=== PATIENT | female | born 1985 | race Caucasian/White ===

== ENCOUNTER 2016-02-21 09:54 | Emergency (ER) | payer OTHER ==
[~2016-02-21] VITALS: Ht 154.9 cm; Wt 56.0 kg
[~2016-02-21 09:54] MED LIST: D-ME118S6 PO; IBUP400T22 PO
[2016-02-21 10:04] VITALS: Ht 154.9 cm; Wt 56.0 kg
--- NOTE | 2016-02-21 11:01 | ERD ---
ER Documentation Chief Complaint Date/Time DATE: 02/21/16 TIME: 10:57 Chief Complaint flu x 3 weeks HPI This is a 31-year-old female that presents to the ER with cough for the last 3 weeks. Patient states that she has been experiencing sharp chest pain with inspiration and bouts of a dry cough. Patient denies any shortness of breath. She does have a past medical history of asthma and allergic rhinitis. Patient is also complaining of sinus pressure behind her ears and behind her eyes. Patient denies any fevers or chills. She denies any recent travel. She denies any leg pain or leg swelling. ROS 12 point review of systems was done, all negative except per HPI. Medications Home Meds Active Scripts Prednisone* (Prednisone*) 20 Mg Tab, 40 MG PO DAILY for 4 Days, TAB Prov:COURTNEY DURANT 02/21/16 Ibuprofen* (Motrin*) 400 Mg Tab, 400 MG PO Q6, #15 TAB Prov:PLACIDO RAMEY MD 08/13/15 Dextromethorphan Hb-Promethazine Hcl (Promethazine DM Syrup) 180 Ml Syrup, 5 ML PO Q6H Y for COUGH, #4 OZ Prov:COURTNEY DURANT 05/06/15 Allergies Allergies: Coded Allergies: amoxicillin (Verified Allergy, Mild, 02/21/16) PMhx/Soc Medical and Surgical Hx: pt denies Medical Hx, pt denies Surgical Hx Hx Alcohol Use: No Hx Substance Use: No Hx Tobacco Use: No Physical Exam Vitals Vital Signs Date Time Temp Pulse Resp B/P Pulse Ox O2 Delivery O2 Flow Rate FiO2 02/21/16 10:04 98.1 67 20 101/55 99 Physical Exam GENERAL: The patient is well-developed, well-nourished, in no acute distress. NECK: Cervical spine is non tender with no step off. Supple, no nuchal rigidity HEENT: Atraumatic. Pupils equal, round and reactive to light. Extraocular muscles are grossly intact. Conjunctivae pink, no discharge. Bilateral tympanic membranes are clear with no evidence of erythema, effusion or dulling of the light reflex. Tonsilar erythema with no exudates or uvular deviation. Clear rhinorrhea. RESPIRATORY: Clear to auscultation bilaterally. There are no rales, wheezes or rhonchi. HEART: Regular rate and rhythm. No murmurs, clicks, rubs or gallops. EXTREMITIES: No clubbing or cyanosis. Full range of motion. Grossly neurovascularly intact. NEUROLOGIC: Alert and oriented. Cranial nerves II through XII are intact. SKIN: There is no rash. The skin is warm and dry. Results 24 hrs EKG was done and read by Dr. Oconnor [address] elevation or T-wave inversion. Procedures/MDM Differential diagnosis includes but is not limited to; Viral URI, allergic rhinitis, bronchitis, pertussis,pneumonia. Cough likely viral in etiology. Clinical suspicion for pneumonia is low as patient appears well, is not hypoxic or in any respiratory distress. Additionally, patients physical examination is benign. In regards to patients sharp chest pain, it may be chest wall pain vs pleuritis secondary to continued cough. I doubt cardiac etiology or intrathoracic abnormality. Patient has denied SOB I doubt pulmonary embolism as patient does not have any PERC criteria. Patient will be sent roselia with a short course of oral steroid. Plan was discussed with patient they understand and agree. Patient needs to follow up with PCP in 1-2 days or return to ER sooner if symptoms worsen. Departure Diagnosis: Primary Impression: Upper respiratory infection Condition: Stable COURTNEY DURANT Feb 21, 2016 11:01
--- NOTE | 2016-02-21 11:35 | RADRPT ---
PROCEDURE: XR Chest. CLINICAL INDICATION: Cough. TECHNIQUE: Single frontal view. COMPARISON: 05/06/2015. FINDINGS: The lungs are clear. The heart size is normal. There is no pleural effusion. There is no pneumothorax. IMPRESSION: 1. Normal chest radiograph. 2. No change from 05/06/2015. RPTAT: QQ .Uday Beckman MD, MD Date Time Electronically viewed and signed by .Uday Beckman MD, MD on 02/21/2016 11:34 .R/
[2016-02-21] MEDS ORDERED: PRED20TA PO (11:43)
== END 2016-02-21 12:22 | disposition home or self-care (01) ==
LOC: FTE 09:54
DX: J06.9 Acute upper respiratory infection, unspecified (principal)
CPT/HCPCS: 71010; 93005; Z7502

== ENCOUNTER 2016-05-17 08:53 | Emergency (ER) | payer OTHER ==
[~2016-05-17] VITALS: Ht 157.5 cm; Wt 48.0 kg
[~2016-05-17 08:53] MED LIST changes: +PRED20TA PO
[2016-05-17 09:19] VITALS: Ht 157.5 cm; Wt 48.0 kg
[2016-05-17] MEDS ORDERED: ALBUTEROL 0.083% (NEB) 2.5 MG/3 ML AMP HHN STA ×2 (10:07→11:11)
--- NOTE | 2016-05-17 10:13 | ERD ---
ER Documentation Chief Complaint Date/Time DATE: 05/17/16 TIME: 10:08 Chief Complaint FLU-LIKE SX, SOB, HX PNA, HX FREQUENT RESPIRATORY INFECTIONS. HPI 31-year-old female presents to the emergency room for symptoms including shortness of breath, wheezing. Stated this has been going on and off for about 5 days. Denies headache, loss of consciousness, dizziness, blurry vision, changes in vision, photophobia, facial pain, ear pain, throat pain, difficulty swallowing, neck pain, shoulder pain, chest pain, cough, hemoptysis, abdominal pain, back pain, loss of appetite, nausea, vomiting, hematochezia, diarrhea, constipation, urinary symptoms, , the possibility of being , bladder and bowel incontinences, extremity weakness, extremity tenderness, numbness or tingling sensation, difficulty walking, recent travel, recent exposure to illness, recent antibiotic use in the last 3 months, fever, chills. Allergy: Amoxicillin. PMH: Asthma. Family medical history: (12) AO LMP: "3 months ago. I have always been irregular. Not ." Medications: Symbicort. Surgery: Denies. Primary Social History: Not working at this time. Smokes medical marijuana. Occasional drinks alcoholic beverages. Denies smoking tobacco, use of illegal drugs. ROS All systems reviewed and are negative except as per history of present illness. Medications Home Meds Active Scripts Acetaminophen* (Tylophen*) 500 Mg Capsule, 2 CAP PO Q8H Y for PAIN AND OR ELEVATED TEMP, #20 CAP Prov:RADHA VARGAS 05/17/16 Albuterol Sulfate* (Proair HFA*) 8.5 Gm Hfa.aer.ad, 2 PUFF INH Q4, #1 INHALER Prov:RADHA VARGAS 05/17/16 Azithromycin* (Zithromax*) 250 Mg Tablet, 250 MG PO .ZPACK DIRECTED, #6 TAB TAKE 500 MG (2 TABS) THE FIRST DAY THEN 250 MG (1 TAB) DAYS 2-5 Prov:RADHA VARGAS F 05/17/16 Prednisone* (Prednisone*) 20 Mg Tab, 40 MG PO DAILY for 4 Days, TAB Prov:COURTNEY DURANT 02/21/16 Ibuprofen* (Motrin*) 400 Mg Tab, 400 MG PO Q6, #15 TAB Prov:PLACIDO RAMEY MD 08/13/15 Dextromethorphan Hb-Promethazine Hcl (Promethazine DM Syrup) 180 Ml Syrup, 5 ML PO Q6H Y for COUGH, #4 OZ Prov:COURTNEY DUARNT 05/06/15 Allergies Allergies: Coded Allergies: amoxicillin (Verified Allergy, Mild, 02/21/16) PMhx/Soc Hx Respiratory Disorders: Yes (asthma) Hx Alcohol Use: No Hx Substance Use: No Hx Tobacco Use: No Physical Exam Vitals Vital Signs Date Time Temp Pulse Resp B/P Pulse Ox O2 Delivery O2 Flow Rate FiO2 05/17/16 10:47 94 24 98 21 05/17/16 09:19 99.6 110 24 134/82 98 Physical Exam CONSTITUTIONAL: Well-appearing; well-nourished; in no apparent distress. HEAD: Normocephalic; atraumatic. EYES: Conjunctiva clear, sclera non-icteric, EOM intact. PERRLA. Ears: Hearing intact. EACs clear, TMs non-bulging, non-inflamed, translucent & mobile, ossicles normal appearance, No obstructions, no erythema, no discharges Nose: No obstructions. No polyps. No external lesions. Mucosa non-inflamed. No external lesions, septum and turbinates normal. No rhinorrhea. No discharges. Frontal sinus is non-tender to palpation. Maxillary sinus is non-tender to palpation. MOUTH: Moist mucous membranes, no lesion, no obstructions, no vesicles, no thrush, patent airway Throat: Uvula in midline. Right tonsil is +1 with no erythema, no exudate. Left tonsil is +1 with no erythema, no exudate. Tolerating secretions well. Good gag reflex. Patent airway. Neck: Supple, without lesions, bruits, or adenopathy. No mass. Thyroid non- enlarged and non-tender to palpation. CHEST: Symmetrical chest. Respirations even and not labored. No retractions noted. CARDIOVASCULAR: Normal S1, S2. RRR. No murmurs, gallops. RESPIRATORY: Normal chest excursion with respiration; No rhonchi, or rales. Breathing even and unlabored. Tight wheezing left greater than the right. Speaking in clear, full, and complete sentences w/ ease. ABDOMEN: Normal bowel sounds normal. Soft, round, non-distended, non-guarding, no tenderness, no rebound, no organomegaly, no masses, no pulsating abdominal mass. No hernia. No peritoneal signs. : No CVA tenderness. BACK: Symmetrical shoulder. Spine is midline without deformity, tenderness. No evidence of trauma or deformity. PELVIS: Stable pelvis. No evidence of trauma or deformity. MUSCULOSKELETAL: Normal gait and station. No misalignment, asymmetry, crepitation, defects, tenderness, masses, effusions, decreased range of motion, instability, atrophy or abnormal strength or tone in the head, neck, spine, ribs , pelvis or extremities. No calf tenderness. NEUROVASCULAR: Distal pulses are present. Pedal pulse are present, equal, and normal. Capillary refills are < 2 seconds. NEUROLOGIC: Alert and oriented x4. Speaks full and clear sentences. Cranial Nerves II-XII normal. Sensation to pain, touch, and proprioception normal. Grossly unremarkable. No neurologic deficits. Romberg test is negative. PSYCHOLOGICAL: The patients mood and manner are appropriate. No hallucinations , delusions. Not SI. Not HI. Has the capacity to decide for self SKIN: Normal for age and ethnicity; warm; dry; good turgor; no apparent lesions or exudates. No rashes, hives, discoloration. Intact. Results 24 hrs Current Medications Medications (Trade) Dose Ordered Sig/Sara Route PRN Reason Start Time Stop Time Status Last Admin Dose Admin Albuterol (Proventil 0.083% (Neb)) 5 mg ONCE STAT [facility] 05/17/16 10:07 05/17/16 10:08 DC 05/17/16 10:46 Ipratropium [place] (Atrovent 0.02% (Neb)) 0.5 mg ONCE ONCE N 05/17/16 10:30 05/17/16 10:31 DC 05/17/16 10:45 Dexamethasone (Decadron) 10 mg ONCE ONCE IM 05/17/16 10:30 05/17/16 10:31 DC 05/17/16 10:15 Acetaminophen (Tylenol Tab) 650 mg ONCE ONCE PO 05/17/16 11:00 05/17/16 11:01 DC 05/17/16 11:00 Procedures/MDM Examination: Please see physical examination. Disease process, medical treatment was explained to the patient and family member. They verbalized understanding and agreed with the diagnostic tests, medical treatment, and follow-up care. Radiology: Chest x-ray Impression: Stable and unremarkable chest. Treatment: Decadron IM. Albuterol. Atrovent. Re-evaluation: Patient denies headache, blurry vision, dizziness, neck pain, shoulder pain, chest pain, back pain, abdominal pain. Tolerating secretions. No difficulty swallowing. Patient did well. Speaks full and clear sentences. Respirations even and unlabored. Lung sounds are clear to auscultation. Consultation: Differential diagnosis: Pneumonia versus status asthmaticus versus asthma exacerbation versus bronchitis versus asthmatic bronchitis versus asthma attack Medical decision makin-year-old female presents to the emergency room for symptoms including shortness of breath, wheezing. Stated this has been going on and off for about 5 days. Patient's complaint, patient's history about her complaint, diagnostic test results, my physical findings, my reevaluation are consistent with my final diagnosis of asthma exacerbation, asthmatic bronchitis. Medications prescribed are the following: Pro-air. Azithromycin. Patient and family member are made aware of the side effects and adverse reactions of the medications prescribed. Instructed on when to seek emergent and medical attention in case allergic/anaphylactic reactions or severe side effects and or adverse reactions to medications. Patient and family member verbalized understanding. Patient instructed Instructed to follow-up with his PCP in 24-48 hours. Community resources was also provided. Patient stated that she will make sure to see a primary care provider in the next 24 hours. Instructed to Call 911 for chest pain, shortness of breath. Advised to come back here in ED as soon as possible for severity of symptoms which includes but not limited to: any new symptoms; shortness of breath/difficulty of breathing; cardiovascular changes; severe gastrointestinal symptoms; signs and symptoms of bleeding and or infection; signs of compartment syndrome/neurovascular changes; neurological changes/deficits. Patient and family member verbalized understanding. Upon discharge, patient is alert and oriented x 4, speaks full and clear sentences, denies pain, has no neurological deficits, has no neurovascular deficits, difficulty of breathing. Breathing even and unlabored. Lung sounds are clear to auscultation. Not in distress. Appears comfortable. Ambulatory with steady gait. Appears satisfied with care provided here in ED. Departure Diagnosis: Primary Impression: Asthma exacerbation Additional Impression: Asthmatic bronchitis Condition: Stable Additional Instructions: Patient instructed Instructed to follow-up with his PCP in 24-48 hours. Community resources was also provided. Patient stated that she will make sure to see a primary care provider in the next 24 hours. Instructed to Call 911 for chest pain, shortness of breath. Advised to come back here in ED as soon as possible for severity of symptoms which includes but not limited to: any new symptoms; shortness of breath/difficulty of breathing; cardiovascular changes; severe gastrointestinal symptoms; signs and symptoms of bleeding and or infection; signs of compartment syndrome/neurovascular changes; neurological changes/deficits. Patient and family member verbalized understanding. RADHA VARGAS May 17, 2016 10:13
[2016-05-17] MEDS ORDERED: IPRATROPIUM (NEB) 0.5 MG/2.5 ML AMP HHN ONE (10:30)
[2016-05-17] MEDS ORDERED: DEXAMETHASONE 10 MG/ML 1 ML INJ IM ONE (10:30)
--- NOTE | 2016-05-17 10:46 | RADRPT ---
PROCEDURE: XR Chest PA and Lateral CLINICAL INDICATION: Cough TECHNIQUE: PA and Lateral views of the chest were obtained. COMPARISON: 02/21/2016 FINDINGS: Cardiovascular: The cardiovascular silhouette appears unremarkable. Lung Uribe: The lung uribe appear clear with no nodule, alveolar infiltrate, or interstitial promi nence evident. Pleural Spaces: No pneumothorax is identified and no effusion is evident. Osseous Structures: The osseous structures appear intact. Soft Tissues: The soft tissues appear unremarkable. IMPRESSION: Stable and unremarkable chest. Physician Petty Date Time Electronically viewed and signed by Gigi Galarza Physician on 05/17/2016 10:46 RH/
[2016-05-17] MEDS ORDERED: ACETAMINOPHEN 325 MG TAB PO ONE (11:00)
[2016-05-17] MEDS ORDERED: AZIT250T94 PO (11:05)
[2016-05-17] MEDS ORDERED: ACET500C5 PO (11:06)
[2016-05-17] MEDS ORDERED: ALBU8.5H3 INH (11:06)
[2016-05-17] MEDS ORDERED: PRED20TA PO (11:11)
[2016-05-17 11:54] VITALS: BP 122/52; PULSE 123; RESP 16
== END 2016-05-17 11:56 | disposition home or self-care (01) ==
LOC: FTE 08:53
DX: J45.901 Unspecified asthma with (acute) exacerbation (principal)
CPT/HCPCS: 71020; 94640; 94664; 96372; J1100; Z7502; Z7610

== ENCOUNTER 2016-08-14 19:52 | Emergency (ER) | payer OTHER ==
[~2016-08-14] VITALS: Ht 157.5 cm; Wt 48.2 kg
[~2016-08-14 19:52] MED LIST changes: +ACET500C5 PO; +ALBU8.5H3 INH; +AZIT250T94 PO
[2016-08-14 19:54] VITALS: Ht 157.5 cm; Wt 48.2 kg
[2016-08-14] MEDS ORDERED: HYDROCODONE/APAP (5/325) TAB PO ONE (21:00)
--- NOTE | 2016-08-14 22:32 | RADRPT ---
PROCEDURE: XR Tibia and Fibula. CLINICAL INDICATION: foot/ leg pain s/p trauma TECHNIQUE: AP, lateral and oblique views of the right tibia and fibula were obtained. COMPARISON: No prior studies are available for comparison. FINDINGS: There is normal mineralization and alignment. No fracture or osseous lesion is identified. The joint s are unremarkable. There are normal soft tissues without evidence of soft tissue swelling. IMPRESSION: Normal right tibia and fibula. No visualized fracture or dislocation. RPTAT: HBST .Rodri Tyler MD, MD Date Time Electronically viewed and signed by .Rodri Tyler MD, MD on 08/14/2016 22:31 .T/
--- NOTE | 2016-08-14 22:33 | RADRPT ---
PROCEDURE: XR Ankle. CLINICAL INDICATION: foot/ leg pain s/p trauma TECHNIQUE: AP and lateral views of the right ankle were performed. COMPARISON: None. FINDINGS: There is normal mineralization and alignment. No fracture or osseous lesion is identified. The joint s are normal. The soft tissues are unremarkable. IMPRESSION: No acute fracture or dislocation. Unremarkable examination. RPTAT: HBST .Rodri Tyler MD, MD Date Time Electronically viewed and signed by .Rodri Tyler MD, on 08/14/2016 22:33 .T/
--- NOTE | 2016-08-14 22:37 | RADRPT ---
PROCEDURE: XR Foot. CLINICAL INDICATION: foot/ leg pain s/p trauma TECHNIQUE: AP, lateral and oblique views of the right foot was obtained. The images were reviewed on a PACS workstation. COMPARISON: None. FINDINGS: There is deformity of the right second metatarsal head with a likely mildly displaced fracture. The re is distraction of the right second metatarsal phalangeal joint, 5 mm. Bone mineralization is norm al. No significant soft tissue swelling is seen. IMPRESSION: 1. Deformity of the right second metatarsal head, likely reflecting a mildly displaced or impacted fracture. Dislocation of the second metatarsal phalangeal joint with distraction. RPTAT: HBST .Rodri Tyler MD, MD Date Time Electronically viewed and signed by .Rodri Tyler MD, on 08/14/2016 22:36 .T/
[2016-08-14] MEDS ORDERED: IBUP-1542 PO (23:04)
[2016-08-14] MEDS ORDERED: HYDR-906 PO (23:04)
[2016-08-14 23:51] VITALS: BP 101/67; PULSE 79; RESP 18; TEMP 97.8
--- NOTE | 2016-08-16 11:18 | ERD ---
ER Documentation Chief Complaint Date/Time DATE: 08/16/16 TIME: 11:01 Chief Complaint RIGHT FOOT DULL SHOTING PAIN/SWELLING S/P TRIPPING OVER 25LB WT HPI Patient is a 31 year old female who present to the ED with right foot and ankle pain s/p tripping over a 25 lb weight. Patient states pain is in foot and radiate up into leg. Unable to bear weight to the affected extremity. Patient denies fevers or chills. Patient did not fall or hit her head. Patient denies headache, nausea, vomiting, back pain or LOC. No previous injuries to the affected extremity. ROS All systems reviewed and are negative except as per history of present illness. Medications Home Meds Active Scripts Hydrocodone/Acetaminophen (Screven 5-325 Tablet) 1 Each Tablet, 1 TAB PO Q6H Y for PAIN, #7 TAB Prov:ARLENE BUENROSTRO PA-C 08/14/16 Ibuprofen* (Motrin*) 600 Mg Tab, 600 MG PO Q6, #20 TAB Prov:ARLENE BUENROSTRO PA-C 08/14/16 Prednisone* (Prednisone*) 20 Mg Tab, 40 MG PO DAILY for 4 Days, TAB Prov:RADHA VARGAS 05/17/16 Acetaminophen* (Tylophen*) 500 Mg Capsule, 2 CAP PO Q8H Y for PAIN AND OR ELEVATED TEMP, #20 CAP Prov:RADHA VARGAS 05/17/16 Albuterol Sulfate* (Proair HFA*) 8.5 Gm Hfa.aer.ad, 2 PUFF INH Q4, #1 INHALER Prov:RADHA VARGAS 05/17/16 Azithromycin* (Zithromax*) 250 Mg Tablet, 250 MG PO .ZPACK DIRECTED, #6 TAB TAKE 500 MG (2 TABS) THE FIRST DAY THEN 250 MG (1 TAB) DAYS 2-5 Prov:RADHA VARGAS 05/17/16 Prednisone* (Prednisone*) 20 Mg Tab, 40 MG PO DAILY for 4 Days, TAB Prov:COURTNEY DURANT 02/21/16 Ibuprofen* (Motrin*) 400 Mg Tab, 400 MG PO Q6, #15 TAB Prov:PLACIDO RAMEY MD 08/13/15 Dextromethorphan Hb-Promethazine Hcl (Promethazine DM Syrup) 180 Ml Syrup, 5 ML PO Q6H Y for COUGH, #4 OZ Prov:COURTENY DURANT 05/06/15 Allergies Allergies: Coded Allergies: amoxicillin (Verified Allergy, Mild, 02/21/16) PMhx/Soc History of Surgery: No Anesthesia Reaction: No Hx Neurological Disorder: No Hx Respiratory Disorders: No (asthma) Hx Cardiac Disorders: No Hx Psychiatric Problems: No Hx Miscellaneous Medical Probl: No Hx Alcohol Use: No Hx Substance Use: Yes (CANNABIS) Hx Tobacco Use: No Smoking Status: Never smoker Physical Exam Vitals Vital Signs Date Time Temp Pulse Resp B/P Pulse Ox O2 Delivery O2 Flow Rate FiO2 08/14/16 23:51 97.8 79 18 101/67 95 Room Air 08/14/16 19:54 98.0 118 20 130/82 96 Physical Exam GENERAL: Well-developed, well-nourished female. Appears in no acute distress. HEAD: Normocephalic, atraumatic. EYES: Pupils are equally reactive bilaterally. EOMs grossly intact. No conjunctival erythema. NECK: Supple. No lymphadenopathy or thyromegaly. No meningismus. LUNG: Clear to auscultation bilaterally. No rhonchi, wheezing, rales or coarse breath sounds. HEART: Regular rate and rhythm. No murmurs, rubs or gallops. BACK: No midline tenderness. Extremities: Equal pulses bilaterally. No peripheral clubbing, cyanosis or edema. No unilateral leg swelling. NEUROLOGIC: Alert and oriented. Moving all four extremities. 5/5 strength in all extremities. Normal speech. Steady gait. SKIN: Normal color. Warm and dry. No rashes or lesions. RLE: No obvious deformity, erythema, ecchymosis. Swelling noted to mid foot and ankle. Skin intact. Full ROM of knee. Decreased ROM of ankle and toes secondary to swelling and pain. Tender to palpation of midfoot, below toes 2-3, lateral ankle. Non tender to palpation of proximal tib-fib, knee. Sensation intact to light touch. Neurovascularly intact. (Able to plantarflex, dorsiflex, taylor foot , invert foot, raise big toe.) 2+ DP and DT pulses. Compartments soft. Results 24 hrs Current Medications Medications (Trade) Dose Ordered Sig/Sara Route PRN Reason Start Time Stop Time Status Last Admin Dose Admin Acetaminophen/ Hydrocodone Bitart (Screven (5/325)) 1 tab ONCE ONCE PO 08/14/16 21:00 08/14/16 21:01 DC 08/14/16 20:46 Procedures/MDM ED COURSE: The patient was stable throughout ED course. I kept the patient and/or family informed of laboratory and diagnostic imaging results throughout the ED course. DIAGNOSTIC IMAGING: Read by radiologist. Patient: ANISA MAGANA : 1985 Age: 31 Sex: F MR #: [id number] DOS: 08/14/162029 Ordering MD: ARLENE BUENROSTRO PA-C Location: [facility] Room/Bed: PROCEDURE: XR Ankle. CLINICAL INDICATION: foot/ leg pain s/p trauma TECHNIQUE: AP and lateral views of the right ankle were performed. COMPARISON: None. FINDINGS: There is normal mineralization and alignment. No fracture or osseous lesion is identified. The joints are normal. The soft tissues are unremarkable. IMPRESSION: No acute fracture or dislocation. Unremarkable examination. RPTAT: HBST .Rodri Tyler MD, MD Date Time Electronically viewed and signed by .Rodri Tyler MD, on 08/14/2016 22:33 .T/ CC: ARLENE BUENROSTRO PA-C Patient: ANISA MAGANA : 1985 Age: 31 Sex: F MR #: [id number] DOS: 08/14/162029 Ordering MD: ARLENE BUENROSTRO PA-C Location: [facility] Room/Bed: PROCEDURE: XR Foot. CLINICAL INDICATION: foot/ leg pain s/p trauma TECHNIQUE: AP, lateral and oblique views of the right foot was obtained. The images were reviewed on a PACS workstation. COMPARISON: None. FINDINGS: There is deformity of the right second metatarsal head with a likely mildly displaced fracture. There is distraction of the right second metatarsal phalangeal joint, 5 mm. Bone mineralization is normal. No significant soft tissue swelling is seen. IMPRESSION: 1. Deformity of the right second metatarsal head, likely reflecting a mildly displaced or impacted fracture. Dislocation of the second metatarsal phalangeal joint with distraction. RPTAT: HBST .Rodri Tyler MD, MD Date Time Electronically viewed and signed by .Rodri Tyler MD, MD on 08/14/2016 22:36 .T/ CC: ARLENE BUENROSTRO PA-C DIAGNOSTIC IMAGING REPORT Patient: ANISA MAGANA : 1985 Age: 31 Sex: F MR #: [id number] DOS: 08/14/16 2030 Ordering MD: ARLENE BUENROSTRO PA-C Location: [facility] Room/Bed: PROCEDURE: XR Tibia and Fibula. CLINICAL INDICATION: foot/ leg pain s/p trauma TECHNIQUE: AP, lateral and oblique views of the right tibia and fibula were obtained. COMPARISON: No prior studies are available for comparison. FINDINGS: There is normal mineralization and alignment. No fracture or osseous lesion is identified. The joints are unremarkable. There are normal soft tissues without evidence of soft tissue swelling. IMPRESSION: Normal right tibia and fibula. No visualized fracture or dislocation. RPTAT: HBST .Rodri Tyler MD, MD Date Time Electronically viewed and signed by .Rodri Tyler MD, MD on 08/14/2016 22:31 .T/ CC: ARLENE BUENROSTRO PA-C PROCEDURES: SPLINT APPLICATION: The patient was verbally consented at bedside prior to splint application. Patient was explained the risks, benefits and alternatives to this procedure. The patient was neurovascularly intact prior to and status post application of the splint. The patient tolerated the procedure well with no complications. Splint type: short leg splint Extremity: right lower extremity Indication: Deformity of the right second metatarsal head, likely reflecting a mildly displaced or impacted fracture. Dislocation of the second metatarsal phalangeal joint with distraction. MEDICATIONS GIVEN: Screven Patient tolerated medication well with no adverse reactions. Patient reported improvement in pain. MEDICAL DECISION MAKING: This is a 31 year old female who presents with R foot and ankle pain s/p tripping over a 25 lbs weight. Vital signs were reviewed. Patient was afebrile. Xrays showed Deformity of the right second metatarsal head, likely reflecting a mildly displaced or impacted fracture. Dislocation of the second metatarsal phalangeal joint with distraction. Xray tib fibula was negative. Xray ankle was negative. Patient was placed in posterior short leg splint by customer support technician. Patient was instructed on crutches use. Given these findings, the patients presentation is most consistent with possible 2nd metatarsal head fracture. I have a much lower clinical concern for ankle dislocation, tibia fracture, fibula fracture, ankle fracture, tarsal bone fracture, lisfranc injury, gout, septic joint, reactive arthritis, psoriatic arthritis, DVT, compartment syndrome, plantar fasciitis, diabetic neuropathy or pes planus. At this time, unable to rule out any tendon and ligament injuries including Lisfranc injury. Patient will need to follow up with pharmacy operations specialist for further management. PRESCRIPTIONS: Ibuprofen DISCHARGE: At this time, patient is stable for discharge and outpatient management. Patient given a copy of all imaging studies. Patient advised to remain nonweight bearing to the affected extremity until seen by pharmacy operations specialist. Referral information provided. I have instructed the patient to follow-up with his/her primary care physician in 1-2 days. I have discussed with the patient the possibility of needing to see an pharmacy operations specialist for further workup and imaging if the pain persists. I have instructed the patient to promptly return to the ER for any new or worsening symptoms including increased pain, swelling, redness, warmth or fever. The patient and/or family expressed understanding of and agreement with this plan. All questions were answered. Home care instructions were provided. Departure Diagnosis: Primary Impression: Metatarsal fracture Encounter type: initial encounter Metatarsal bone: second Fracture type: closed Fracture alignment: displaced Laterality: unspecified laterality Qualified Code: S92.323A - Closed displaced fracture of second metatarsal bone , unspecified laterality, initial encounter Additional Impression: Ankle pain Laterality: unspecified laterality Chronicity: acute Qualified Code: M25.579 - Acute ankle pain, unspecified laterality Condition: Stable Patient Instructions: Fracture, Foot Referrals: [facility] YOU HAVE RECEIVED A MEDICAL SCREENING EXAM AND THE RESULTS INDICATE THAT YOU DO NOT HAVE A CONDITION THAT REQUIRES URGENT TREATMENT IN THE EMERGENCY DEPARTMENT. FURTHER EVALUATION AND TREATMENT OF YOUR CONDITION CAN WAIT UNTIL YOU ARE SEEN IN YOUR DOCTORS OFFICE WITHIN THE NEXT 1-2 DAYS. IT IS YOUR RESPONSIBILITY TO MAKE AN APPOINTMENT FOR FOLOW-UP CARE. IF YOU HAVE A PRIMARY DOCTOR --you should call your primary doctor and schedule an appointment IF YOU DO NOT HAVE A PRIMARY DOCTOR YOU CAN CALL OUR PHYSICIAN REFERRAL HOTLINE AT IF YOU CAN NOT AFFORD TO SEE A PHYSICIAN YOU CAN CHOSE FROM THE FOLLOWING [facility] [address] [facility]. [facility] [address] [facility] [address] [facility] [address] [facility] [address] [facility]. [facility] [address] [facility] [facility] YOU HAVE RECEIVED A MEDICAL SCREENING EXAM AND THE RESULTS INDICATE THAT YOU DO NOT HAVE A CONDITION THAT REQUIRES URGENT TREATMENT IN THE EMERGENCY DEPARTMENT. FURTHER EVALUATION AND TREATMENT OF YOUR CONDITION CAN WAIT UNTIL YOU ARE SEEN IN YOUR DOCTORS OFFICE WITHIN THE NEXT 1-2 DAYS. IT IS YOUR RESPONSIBILITY TO MAKE AN APPOINTMENT FOR FOLOW-UP CARE. IF YOU HAVE A PRIMARY DOCTOR --you should call your primary doctor and schedule and appointment IF YOU DO NOT HAVE A PRIMARY DOCTOR YOU CAN CALL OUR PHYSICIAN REFERRAL HOTLINE AT . IF YOU CAN NOT AFFORD TO SEE A PHYSICIAN YOU CAN CHOSE FROM THE FOLLOWING [facility] INSTITUTIONS: [facility] [address] [place] [address] [facility] [address] [place] [address] [facility] + [facility] [address] [place] [address] [facility] Hours: Mon-Fri 9:00 AM - 5:00 PM Additional Instructions: Call your primary care doctor TOMORROW for an appointment during the next 1-2 days.See the doctor sooner or return here if your condition worsens before your appointment time. Remain in splint until seen by pharmacy operations specialist. Use crutches when ambulating. ARLENE BUENROSTRO PA-C Aug 16, 2016 11:17
== END 2016-08-14 23:50 | disposition home or self-care (01) ==
LOC: FTE 19:52
DX: S92.323A Displaced fracture of second metatarsal bone, unspecified foot, initial encounter for closed fracture (principal); J45.909 Unspecified asthma, uncomplicated; W18.40XA Slipping, tripping and stumbling without falling, unspecified, initial encounter; Y92.9 Unspecified place or not applicable
CPT/HCPCS: 29515; 73590; 73610; 73630; Z7610

== ENCOUNTER 2017-01-10 00:44 | Emergency (ER) | payer OTHER ==
[~2017-01-10] VITALS: Ht 157.5 cm; Wt 56.0 kg
[~2017-01-10 00:44] MED LIST changes: +HYDR-906 PO; +IBUP-1542 PO
[2017-01-10 00:46] VITALS: Ht 157.5 cm; Wt 56.0 kg
[2017-01-10] MEDS ORDERED: SOD CHLORIDE 0.9% 500 ML IV STA (01:13)
[2017-01-10] MEDS ORDERED: ONDANSETRON 4 MG INJ IV STA (01:13)
[2017-01-10] MEDS ORDERED: morphine 4 MG/ML VIAL IV STA (01:13)
[2017-01-10 01:35] LABS: BASOPHIL # 0.1 10^3/ul (0.0-0.1); BASOPHILS % 0.4 % (0.0-2.0); EOSINOPHILS # 0.9 10^3/ul (0.0-0.5); HEMOGLOBIN 13.4 g/dl (12.0-16.0); LYMPHOCYTES # 2.2 10^3/ul (0.8-2.9); LYMPHOCYTES % 15.2 % (15.0-51.0); MEAN CORPUSCULAR HEMOGLOBIN 29.6 pg (29.0-33.0); MEAN CORPUSCULAR HGB CONC 33.5 g/dl (32.0-37.0); MEAN CORPUSCULAR VOLUME 88.5 fl (82.0-101.0); MONOCYTE # 1.3 10^3/ul (0.3-0.9); MONOCYTES % 8.8 % (0.0-11.0); NEUTROPHIL # 10.1 10^3/ul (1.6-7.5); NEUTROPHILS % 69.3 % (39.0-77.0); PLATELET COUNT 373 10^3/UL (140-415); RED BLOOD COUNT 4.52 10^6/ul (4.20-5.40); RED CELL DISTRIBUTION WIDTH 12.3 % (11.5-14.5); WHITE BLOOD COUNT 14.6 10^3/ul (4.8-10.8)
--- NOTE | 2017-01-10 02:12 | RADRPT ---
PROCEDURE: CT Abdomen and Pelvis without contrast. CLINICAL INDICATION: Pain. TECHNIQUE: CT scan of the abdomen and pelvis was performed on a multidetector slice CT scanner. No intravenous contrast material was utilized. Sagittal and coronal reformatted images were obtained fr om the axial source images. Images were reviewed on a high-resolution PACS workstation. Exam CTDlvol = 6 mGy and DLP = 311 Gy-cm. One of the following 3 dose reduction techniques were used: Automated exposure control; adjustment of the mA and/or kV according to patient size; or use of iterative shy nstruction technique. DICOM images are available. COMPARISON: None. FINDINGS: There is gastric wall thickening versus incomplete distension. There is no obstruction or ileus. Th e appendix is well visualized and normal in size. There is no evidence for diverticulitis. There is no free fluid. The liver is overall normal in size. No intrahepatic lesions are identified. The gallbladder is norm al in appearance. There is no definite biliary ductal dilation. Pancreas is normal in appearance. Th e spleen is unremarkable. There are no adrenal masses. The aorta is normal caliber. Kidneys are normal in appearance without hydronephrosis, mass or calculus. There is no perinephric c ollection. Ureters are of normal caliber and without evidence for an obstructing calculus The urinar y bladder is normal in appearance. The uterus and ovaries are grossly unremarkable. Limited evaluation of the lung bases is unremarkable. The bones are unremarkable. IMPRESSION: 1. Gastric wall thickening/gastritis versus incomplete distension. 2. Evidence. 3. No bowel obstruction or ileus. 4. No free fluid. 5. No obstructive uropathy. 6. Otherwise negative. RPTAT: HMVK .Chase Novoa MD, MD Date Time Electronically viewed and signed by .Chase Novoa MD, MD on 01/10/2017 02:12 .K/
[2017-01-10 02:28] LABS: ALBUMIN 4.6 g/dl (3.3-4.9); ALBUMIN/GLOBULIN RATIO 1.21; BILIRUBIN,INDIRECT 0.4 mg/dl (0-1.1); BILIRUBIN,TOTAL 0.4 mg/dl (0.2-1.3); CALCIUM 10.5 mg/dl (8.4-10.2); CREATININE 0.73 mg/dl (0.44-1.00); POTASSIUM 3.9 mmol/L (3.5-5.1); TOTAL PROTEIN 8.4 g/dl (6.1-8.1)
[2017-01-10 02:56] LABS: ADD UMIC YES; UR AMORPHOUS CRYSTAL MANY /HPF (NONE SEEN); UR ASCORBIC ACID NEGATIVE (NEGATIVE); UR BILIRUBIN (Dip) NEGATIVE (NEGATIVE); UR BLOOD (Dip) NEGATIVE (NEGATIVE); UR CLARITY TURBID (CLEAR); UR COLOR YELLOW (YELLOW); UR GLUCOSE (Dip) NEGATIVE (NEGATIVE); UR KETONES (Dip) NEGATIVE (NEGATIVE); UR LEUKOCYTE ESTERASE (Dip) NEGATIVE Leu/ul (NEGATIVE); UR MUCUS FEW /HPF (NONE SEEN); UR NITRITE (Dip) NEGATIVE (NEGATIVE); UR RBC 0 /HPF (0-5); UR SPECIFIC GRAVITY (Dip) 1.015 (1.003-1.030); UR SQUAMOUS EPITHELIAL CELL MANY /HPF (FEW); UR TOTAL PROTEIN (Dip) NEGATIVE (NEGATIVE); UR UROBILINOGEN (Dip) NEGATIVE (NEGATIVE)
--- NOTE | 2017-01-10 02:56 | ERD ---
ER Documentation Chief Complaint Chief Complaint c/o abd pain with n/v/f/c x 2 days. HPI This is a 31 female, abdominal pain nausea vomiting fevers chills over the last 2 days. She denies any blood in her vomit. Denies any blood in her stool. Denies any other current issues. Pain is mild to moderate intensity no exacerbating limiting factors. Pain started over. She is also urgency frequency of urination. ROS All systems reviewed and are negative except as per history of present illness. Medications Home Meds Active Scripts Hydrocodone/Acetaminophen (Higden 5-325 Tablet) 1 Each Tablet, 1 TAB PO Q6H Y for PAIN, #7 TAB Prov:ARLENE BUENROSTRO PA-C 08/14/16 Ibuprofen* (Motrin*) 600 Mg Tab, 600 MG PO Q6, #20 TAB Prov:ARLENE BUENROSTRO PA-C 08/14/16 Prednisone* (Prednisone*) 20 Mg Tab, 40 MG PO DAILY for 4 Days, TAB Prov:RADHA VARGAS 05/17/16 Acetaminophen* (Tylophen*) 500 Mg Capsule, 2 CAP PO Q8H Y for PAIN AND OR ELEVATED TEMP, #20 CAP Prov:PEDRORADHA BERNSTEIN 05/17/16 Albuterol Sulfate* (Proair HFA*) 8.5 Gm Hfa.aer.ad, 2 PUFF INH Q4, #1 INHALER Prov:PEDROAMANDEEPRADHA F 05/17/16 Azithromycin* (Zithromax*) 250 Mg Tablet, 250 MG PO .ZPACK DIRECTED, #6 TAB TAKE 500 MG (2 TABS) THE FIRST DAY THEN 250 MG (1 TAB) DAYS 2-5 Prov:RADHA VARGAS F 05/17/16 Prednisone* (Prednisone*) 20 Mg Tab, 40 MG PO DAILY for 4 Days, TAB Prov:COURTNEY DURANT 02/21/16 Ibuprofen* (Motrin*) 400 Mg Tab, 400 MG PO Q6, #15 TAB Prov:PLACIDO RAMEY MD 08/13/15 Dextromethorphan Hb-Promethazine Hcl (Promethazine DM Syrup) 180 Ml Syrup, 5 ML PO Q6H Y for COUGH, #4 OZ Prov:COURTNEY DURANT 3/29/16 Allergies Allergies: Coded Allergies: amoxicillin (Verified Allergy, Mild, 02/21/16) PMhx/Soc History of Surgery: No Anesthesia Reaction: No Hx Neurological Disorder: No Hx Respiratory Disorders: No (asthma) Hx Cardiac Disorders: No Hx Psychiatric Problems: No Hx Miscellaneous Medical Probl: No Hx Alcohol Use: No Hx Substance Use: Yes (CANNABIS) Hx Tobacco Use: No Smoking Status: Current every day smoker Physical Exam Vitals Vital Signs Date Time Temp Pulse Resp B/P Pulse Ox O2 Delivery O2 Flow Rate FiO2 01/10/17 01:40 98.1 86 18 135/75 100 Room Air 01/10/17 00:46 97.7 79 18 139/84 100 Physical Exam Const: [] Head: Atraumatic Eyes: Normal Conjunctiva ENT: Normal External Ears, Nose and Mouth. Neck: Full range of motion..~ No meningismus. Resp: Clear to auscultation bilaterally Cardio: Regular rate and rhythm, no murmurs Abd: Soft, non tender, non distended. Normal bowel sounds Skin: No petechiae or rashes Back: No midline or flank tenderness Ext: No cyanosis, or edema Neur: Awake and alert Psych: Normal Mood and Affect Result Diagram: 01/10/17 0116 01/10/17 0116 Results 24 hrs Laboratory Tests Test 01/10/17 01:16 White Blood Count 14.610^3/ul Red Blood Count 4.5210^6/ul Hemoglobin 13.4g/dl Hematocrit 40.0% Mean Corpuscular Volume 88.5fl Mean Corpuscular Hemoglobin 29.6pg Mean Corpuscular Hemoglobin Concent 33.5g/dl Red Cell Distribution Width 12.3% Platelet Count 98986^3/UL Mean Platelet Volume 10.0fl Neutrophils % 69.3% Lymphocytes % 15.2% Monocytes % 8.8% Eosinophils % 6.0% Basophils % 0.4% Nucleated Red Blood Cells % 0.0/100WBC Neutrophils # 10.110^3/ul Lymphocytes # 2.210^3/ul Monocytes # 1.310^3/ul Eosinophils # 0.910^3/ul Basophils # 0.110^3/ul Nucleated Red Blood Cells # 0.010^3/ul Sodium Level 141mmol/L Potassium Level 3.9mmol/L Chloride Level 99mmol/L Carbon Dioxide Level 29mmol/L Anion Gap 17 Blood Urea Nitrogen 8mg/dl Creatinine 0.73mg/dl Glucose Level 109mg/dl Calcium Level 10.5mg/dl Total Bilirubin 0.4mg/dl Direct Bilirubin 0.00mg/dl Indirect Bilirubin 0.4mg/dl Aspartate Amino Transf (AST/SGOT) 22IU/L Alanine Aminotransferase (ALT/SGPT) 28IU/L Alkaline Phosphatase 114IU/L Total Protein 8.4g/dl Albumin 4.6g/dl Globulin 3.80g/dl Albumin/Globulin Ratio 1.21 Lipase 68U/L Current Medications Medications (Trade) Dose Ordered Sig/Sara Route PRN Reason Start Time Stop Time Status Last Admin Dose Admin Sodium Chloride (NS) 500 ml @ 500 mls/hr Q1H STAT IV 01/10/17 01:13 01/10/17 02:12 DC 01/10/17 01:23 Morphine Sulfate (morphine) 4 mg ONCE STAT IV 01/10/17 01:13 01/10/17 01:15 DC 01/10/17 01:23 Ondansetron HCl (Zofran Inj) 4 mg ONCE STAT IV 01/10/17 01:13 01/10/17 01:15 DC 01/10/17 01:23 Procedures/MDM Medical decision-making: Patient has evidence clinically of an early ascending UTI versus pyelonephritis. At this point is tolerating p.o. She will start antibiotics pain meds and antiemetics. She has been fluid hydrated here and has been advised to increase p.o. fluid intake at home. Patient is to return in 8 hours for serial abdominal exams with otherwise stable for outpatient management as her pain is completely resolved. Departure Diagnosis: Primary Impression: Abdominal pain Abdominal location: unspecified location Qualified Code: R10.9 - Abdominal pain, unspecified abdominal location Condition: Stable SHAHID AMAROVanesa Jan 10, 2017 02:56
[2017-01-10] MEDS ORDERED: CIPR500T4 PO (02:57)
[2017-01-10] MEDS ORDERED: ONDA4TAB14 PO (02:57)
[2017-01-10] MEDS ORDERED: HYDR-906 PO (02:57)
[2017-01-10 03:22] VITALS: BP 110/70; PULSE 63; RESP 14; TEMP 98.1
== END 2017-01-10 03:32 | disposition home or self-care (01) ==
LOC: E/R 00:44
DX: R10.9 Unspecified abdominal pain (principal); R11.2 Nausea with vomiting, unspecified; R39.15 Urgency of urination; J45.909 Unspecified asthma, uncomplicated; F17.210 Nicotine dependence, cigarettes, uncomplicated
CPT/HCPCS: 36415; 74176; 80053; 81001; 83690; 85025; 96374; 96375; J2270; J2405; J7040; Z7502

== ENCOUNTER 2017-05-03 08:47 | Emergency (ER) | END 2017-05-03 11:45 | disposition home or self-care (01) ==

== ENCOUNTER 2017-06-29 10:37 | Inpatient (IN) | END 2017-07-01 13:55 | disposition home or self-care (01) | DRG 392 ==

== ENCOUNTER 2017-08-07 11:48 | Emergency (ER) | END 2017-08-07 14:41 | disposition home or self-care (01) ==

== ENCOUNTER 2017-10-26 13:20 | Emergency (ER) | END 2017-10-26 15:39 | disposition home or self-care (01) ==

== ENCOUNTER 2017-12-03 12:27 | Emergency (ER) | END 2017-12-03 14:31 | disposition home or self-care (01) ==